=== PATIENT | female | born 1985 | race Caucasian/White ===

== ENCOUNTER 2017-04-18 08:41 | Day surgery (SDC) | payer OTHER ==
[2017-04-18] VITALS (8 sets, daily range): BP systolic 89–106; BP diastolic 50–72; PULSE 62–75; RESP 14–63; Ht 175.3 cm; Wt 65.5 kg
[~2017-04-18] VITALS: Ht 175.3 cm; Wt 65.5 kg
[~2017-04-18 08:41] MED LIST: ALBU8.5H5 IH; AMIT10TA6 PO; CITA-104 PO; DICY10CA60 PO; GABA300C16 PO; GUAN1TAB28 PO; LORA0.5T PO; NORE1TAB34 PO; [UNRECOGNIZED DRUG - CODE] PO
[2017-04-18] MEDS ORDERED: OXYCODONE/ACETAMINOPHEN (5/325) TAB PO PRN ×2 (09:00)
[2017-04-18] MEDS ORDERED: ONDANSETRON 4 MG INJ IV PRN (09:00)
[2017-04-18] MEDS ORDERED: LABETALOL HCL 20MG INJ IV PRN (09:00)
[2017-04-18] MEDS ORDERED: hydrALAzine 20 MG INJ IV PRN (09:00)
[2017-04-18] MEDS ORDERED: FENTAnyl 50 MCG/ML VIAL IV PRN (09:00)
[2017-04-18] MEDS ORDERED: DIPHENHYDRAMINE 50 MG INJ IV PRN (09:00)
[2017-04-18] MEDS ORDERED: PROCHLORPERAZINE 10 MG INJ IV PRN (09:00)
[2017-04-18] MEDS ORDERED: HYDROmorphONE (0.2 MG/ML) 10ML SYG IV PRN ×2 (09:00)
[2017-04-18] MEDS ORDERED: MEPERIDINE 25 MG INJ IV PRN (09:00)
[2017-04-18] MEDS ORDERED: EPHEDrine SULFATE 50 MG/5 ML SYG IV PRN (09:00)
[2017-04-18] MEDS ORDERED: SOD CHLORIDE 0.9% 1,000 ML IV SCH (09:30)
[2017-04-18] MEDS ORDERED: CLINDAMYCIN 600 MG/D5W (PMX) 50 ML IVPB ONE ×2 (09:30→11:12)
[2017-04-18] MEDS ORDERED: GABA300C16 PO (09:40)
[2017-04-18] MEDS ORDERED: TOPI100T42 PO (09:41)
[2017-04-18] MEDS ORDERED: PROPOFOL 20 ML ONE (09:42)
[2017-04-18] MEDS ORDERED: TRAZ50TA18 PO (09:42)
[2017-04-18] MEDS ORDERED: BUPR300T48 PO (09:42)
[2017-04-18] MEDS ORDERED: LIDOCAINE 2% (SDV) 5 ML INJ ONE (09:42)
[2017-04-18] MEDS ORDERED: SUMA50TA11 PO (09:43)
[2017-04-18] MEDS ORDERED: FENTAnyl 50 MCG/ML VIAL ONE (09:43)
[2017-04-18] MEDS ORDERED: MIDAZOLAM 1 MG/ML 2 ML INJ ONE (09:43)
[2017-04-18] MEDS ORDERED: FEXO180T61 PO (09:44)
[2017-04-18] MEDS ORDERED: BUPIVACAINE 0.5% (SDV) 30 ML INJ ONE (11:09)
[2017-04-18] MEDS ORDERED: LIDOCAINE 2% (MDV) 20 ML INJ ONE (11:09)
[2017-04-18] MEDS ORDERED: METOCLOPRAMIDE 10 MG INJ ONE (11:17)
[2017-04-18] MEDS ORDERED: ONDANSETRON 4 MG INJ ONE (11:17)
--- NOTE | 2017-04-18 11:36 | OPR ---
Date/Time of Note Date/Time of Note DATE: 04/18/17 TIME: 11:33 Operative Report Procedure Date: Apr 18, 2017 Preoperative Diagnosis back mass Postoperative Diagnosis back mass Operation Performed 1. excision of back mass 3 cm mass and 4 cm incision 2. localized adjacent tissue transfer with the use of skin flaps 8 sq cm defect 3. therapeutic injection of subcutaneous local anesthesia Surgeon: Natalee LOCKETT Specimens back mass Indications This is a 31-year-old female with a back mass. She required surgical excision. Risks alternatives benefits and percent were discussed the patient. Patient expresses understanding consents to the operation. Procedure Description Patient is taken to the OR and prepped and draped in usual sterile fashion. Surgical timeout is performed. IV antibiotics are given. Therapeutic local anesthesia is injected to the tissues surrounding the mass. Transverse incision was made with a 15 blade down to the mass. The mass was incorporated also to the skin the skin and the mass were resected en bloc with cautery. There is good hemostasis. Due to tissue defect localized adjacent tissue transfer with use of skin flaps was performed multilayer closure with interrupted 3-0 Vicryl and skin loretta. Dry dressings were applied. Natalee LOCKETT Apr 18, 2017 11:35
[2017-04-18] MEDS ORDERED: ACETAMINOPHEN/CODEINE #3 TAB PO ONE (12:00)
== END 2017-04-18 12:36 | disposition home or self-care (01) ==
LOC: SDS 08:41
PROVIDERS: ATTEND Surgery
DX: L72.0 Epidermal cyst (principal)
CPT/HCPCS: 14000; 84703; 88307; J2250; J2405; J2765; J3010; Z7512; Z7610